=== PATIENT | male | born 1960 | race Caucasian/White ===

== ENCOUNTER → 2016-08-04 | Outpatient (CLI) | payer MEDICAID | LOC: FIMAGING 12:41 | PROVIDERS: ATTEND Nurse Practitioner | DX: R93.8 Abnormal findings on diagnostic imaging of other specified body structures (principal); R06.00 Dyspnea, unspecified; R06.02 Shortness of breath; R19.7 Diarrhea, unspecified; R21 Rash and other nonspecific skin eruption ==

== ENCOUNTER → 2016-09-01 | Outpatient (CLI) | payer MEDICAID | LOC: CIMAGING 09:23 | PROVIDERS: ATTEND Nurse Practitioner | DX: R91.8 Other nonspecific abnormal finding of lung field (principal); I25.10 Atherosclerotic heart disease of native coronary artery without angina pectoris; R93.1 Abnormal findings on diagnostic imaging of heart and coronary circulation; R06.02 Shortness of breath | CPT/HCPCS: 71250-PO ==